=== PATIENT | female | born 1950 | race Caucasian/White ===

== ENCOUNTER 2018-10-15 05:25 | Inpatient (IN) | payer OTHER ==
[~2018-10-15] VITALS: Ht 167.6 cm; Wt 121.7 kg
[~2018-10-15 05:25] MED LIST: AMITRIPTYLINE100 MG PO; ENOXAPARIN40 MG/0.1 SUBQ
[2018-10-15 13:03] VITALS: BP 147/69
[2018-10-15 18:15] VITALS: BP 152/88
[2018-10-15 19:29] LABS: BASOPHILS 0.2 % (0.0-2.0); HEMATOCRIT 40.5 % (37.0-47.0); HEMOGLOBIN 13.7 gm/dL (12.0-15.0); LYMPHOCYTES 2.9 % (24.0-44.0); MCH 30.3 pg (26.0-34.0); MCHC 33.9 g/dL (28.0-37.0); MCV 89.1 fL (80.0-100.0); MONOCYTES 0.9 % (1.0-8.0); PLATELET COUNT 312 thou/uL (150-400); RBC 4.54 mil/uL (4.20-5.00); RDW 12.9 % (10.5-14.5); WBC 13.6 thou/uL (4.0-11.0)
[2018-10-15 19:43] LABS: TROPONIN-I <0.06 ng/mL (<0.06)
[2018-10-15 20:01] LABS: ALBUMIN 3.7 g/dL (3.4-5.0); CALCIUM 9.3 mg/dL (8.5-10.1); CREATININE 0.9 mg/dL (0.6-1.0); MAGNESIUM 2.1 mg/dL (1.8-2.4); POTASSIUM 4.8 mmol/L (3.5-5.1); TOTAL BILIRUBIN 0.3 mg/dL (<0.1-1.0); TOTAL PROTEIN 7.1 g/dL (6.4-8.2)
--- NOTE | 2018-10-15 20:02 | NUR ---
PT ARRIVED AT APPROX 1815 FROM PACU WITH BELONGINGS AND FAMILY. PT AOX4, VSS, HR 110-112. TELEMETRY PUT ON, ADMIT STRIP PRINTED AND CHARTED. ADMISSSION ASSESSMENT COMPLETED. WILL ACKNOWLEDGE AND IMPLEMENT ORDERS. WILL CONTINUE TO MONITOR AND FOLLOW POC.
[2018-10-15 20:35] VITALS: BP 142/78
[2018-10-15 23:49] VITALS: BP 141/79
--- NOTE | 2018-10-16 03:36 | NUR ---
ADMIT, 10/15/18. POST OP D1, FOOT LEFT SURGERY. ALERT AND ORIENTED. VITALS STABLE. C/O NAUSEA AND VOMITING. ZOFRAN, FAMOTIDINE, TUMS, AND COMPAZINE GIVEN. N/V RESOLVED DENIES PAIN. LEFT LEG STILL NUMB FROM THE SURGERY. ABLE TO MOVE TOES. DR. TRAMMELL WILL BE VISITNG PT TOMORROW AFTERNOON. NO WEIGHT BEARING ON THE LEFT LEG. PIVOTS FINE WITH TRANSFERS. WILL CONTINUE TO MONITOR.
[2018-10-16 04:24] VITALS: BP 144/69
[2018-10-16 07:53] VITALS: BP 120/52
[2018-10-16 10:10] VITALS: BP 120/52
[2018-10-16 10:50] LABS: HEMOGLOBIN 13.6 gm/dL (12.0-15.0); MCH 30.7 pg (26.0-34.0); MCV 90.2 fL (80.0-100.0); RBC 4.43 mil/uL (4.20-5.00); RDW 13.2 % (10.5-14.5); WBC 14.7 thou/uL (4.0-11.0)
[2018-10-16 11:00] LABS: CREATININE 1.1 mg/dL (0.6-1.0); MAGNESIUM 2.1 mg/dL (1.8-2.4)
[2018-10-16 11:04] LABS: POTASSIUM 3.3 mmol/L (3.5-5.1)
[2018-10-16 14:10] VITALS: BP 125/71
--- NOTE | 2018-10-16 14:12 | NUR ---
MET WITH PATIENT WHO RESIDES AT HOME WITH SPOUSE IN [facility]. SHE HAD RECENT FOOT SX AND NWB ON LEFT FOOT. SHE ADMITS WITH TACHYCARDIA. AT HOME SHE HAS FALLEN USING HER KNEE SCOOTER. SHE REPORTS SHE IS IN NEED OF REHAB THERAPY PRIOR TO HOME. DISCUSSED [facility] BUT PATIENT REPORTS 5N EVALED AND BOTH SHE AND STRONGLY WANT REHAB HERE IN HOSPITAL WERE CARDIOLOGY ABLE TO FOLLOW. UPDATED 5N LIASON. PATIENT NOT INTERESTED IN POST ACUTE CARE LIST.
--- NOTE | 2018-10-16 15:54 | 2DMMODE ---
[facility] [address] [place] [address] 2 D/M-MODE ECHOCARDIOGRAM Name: ARYANLUNA Room #: 203-P [facility] IN ..#: [id number] Admission: 10/15/18 Attend Phys: Pardeep Haney, Discharge: Date of : 52 Date of Service: 10/16/18 1554 Report #: [id number] THIS REPORT FOR: //name// APPROVED REPORT Study performed: 10/16/2018 14:47:16 EXAM: Comprehensive 2D, Doppler, and color-flow Echocardiogram Patient Location: Bedside Room #: [facility] Status: routine BSA: 2.26 HR: 100 bpm BP: 120/52 mmHg Other Information Study Quality: Fair Technically limited study due to limited mobility and morbid obesity. Indications Tachycardia. Echo Enhancing Agent Indication: Endocardial border delineation Agent(s) / Amount(s) Used: Optison 5 cc 2D Dimensions RVDd: 33.61 mm IVSd: 10.26 (7-11mm) LVOT Diam: 21.51 (18-24mm) LVDd: 39.52 mm PWd: 10.01 (7-11mm) Ascending Ao: 32.36 (22-36mm) LVDs: 26.42 (25-40mm) Aortic Root: 31.84 mm Volumes Left Atrial Volume (Systole) Single Plane 4CH: 28.05 mL Single Plane 2CH: 34.92 mL LA ESV Index: 15.00 mL/m2 Aortic Valve AoV Peak Richard.: 1.75 m/s AO Peak Gr.: 12.26 mmHg LVOT Max P.89 mmHg LVOT Max V: 1.11 m/s DARYA Vmax: 2.29 cm2 [facility] [place] [place] [address] 2 D/M-MODE ECHOCARDIOGRAM Name: LUNA BAEZA Dread Room #: 203-P [facility] IN [facility].#: [id number] Admission: 10/15/18 Attend Phys: Pardeep Haney, Discharge: Date of : 52 Date of Service: 10/16/18 1554 Report #: [id number] Mitral Valve E/A Ratio: 0.7 MV Decel. Time: 243.61 ms MV E Max Richard.: 0.85 m/s MV A Richard.: 1.16 m/s MV PHT: 70.65 ms IVRT: 62.28 ms Pulmonary Valve PV Peak Richard.: 0.92 m/s PV Peak Gr.: 3.41 mmHg Tricuspid Valve TR Peak Richard.: 2.27 m/s RAP Estimate: 5.00 mmHg TR Peak Gr.: 20.63 mmHg PA Pressure: 26.00 mmHg Left Ventricle The left ventricle is normal size. There is normal LV segmental wall motion. There is normal left ventricular wall thickness. Left ventricular systolic function is normal. LVEF is 60-65%. Mild diastolic dysfunction is present (impaired relaxation pattern). Right Ventricle Right ventricle is not well visualized but appears grossly normal in size and function. The right ventricular systolic function is normal. Atria The left atrium size is normal. The right atrium size is normal. Aortic Valve Aortic valve is grossly normal in structure. No aortic regurgitation is present. There is no aortic valvular stenosis. Mitral Valve The mitral valve is normal in structure. There is no mitral valve regurgitation noted. No evidence of mitral valve stenosis. Tricuspid Valve Tricuspid valve is not well visualized. Trace tricuspid regurgitation. Estimated PAP is 25mmHg. [facility] [address] [place] [address] 2 D/M-MODE ECHOCARDIOGRAM Name: LUNA BAEZA Room #: 203-P [facility] IN ..#: [id number] Admission: 10/15/18 Attend Phys: Pardeep Haney, Discharge: Date of : 52 Date of Service: 10/16/18 1554 Report #: [id number] Pulmonic Valve The pulmonary valve is normal in structure. Trace pulmonic regurgitation. Great Vessels The aortic root is normal in size. The ascending aorta is normal in size. IVC is normal in size and collapses >50% with inspiration. Pericardium There is no pericardial effusion. <Conclusion> Left ventricular systolic function is normal. There is normal LV segmental wall motion. LVEF is 60-65%. Mild diastolic dysfunction Aortic valve is grossly normal in structure. No aortic regurgitation or stenosis The mitral valve is normal in structure. No mitral valve regurgitation. Trace tricuspid regurgitation. Estimated pulmlonary artery pressure of 25mmHg. There is no pericardial effusion. <ELECTRONICALLY SIGNED> By: Azar Solorzano MD, [facility] 10/16/18 1554 1554 1554 Azar Solorzano MD, FACC /INF
[2018-10-16 15:59] VITALS: BP 124/62
[2018-10-16] MEDS ORDERED: ATENOLOL 50MG T50 M1 PO (16:52)
[2018-10-16 17:12] LABS: GLYCOHEMOGLOBIN (HGB A1C) 5.5 % (4.8-5.6)
[2018-10-16 19:11] VITALS: BP 100/60
--- NOTE | 2018-10-16 19:12 | NUR ---
ASSUMED CARE OF PT AT SHIFT CHANGE. ASSESSMENTS CHARTED. MEDS GIVEN PER NOV. PT AOX4, VSS, PT TACHY THROUGHOUT SHIFT, CARDIOLOGY CONSULTED AND SAW PT. C/O PAIN ONCE DURING SHIFT, MANAGED WITH PO PAIN MEDS. PT C/O ITCHING EARLY THIS AM, BENDADRYL ORDERED. PT DENIED C/O SINCE AND DID NOT FEEL NEED TO TAKE BENADRYL.DR. TRAMMELL SAW PT TODAY, STATED SHE WILL BE BACK ON MONDAY OR MONDAY TO CHANGE WRAPPING ON LEFT FOOT FROM PROCEDURE. O2 SATS REMAIN WNL ON ROOM AIR. NO S/SX OF CARDIAC OR RESP DISTRESS NOTED. PT UP WITH PHYSICAL THERAPY TODAY, TOLERATED WELL, ABLE TO SHIFT SELF IN BED WELL. URINE OUTPUT ADEQUATE. NO BM THIS SHIFT. WILL CONTINUE TO MONITOR AND FOLLOW POC.
--- NOTE | 2018-10-17 01:32 | NUR ---
1900, PT AO X4. DENIES CHEST PAIN AND N/V. PT POST L. FOOT SURGERY. REPORTED PAINOF 5 IN THE L. FOOT. ALLEVIATED BY TRAMADOL. CURRENTLY ON ATENOLOL, HR MAINTAINED LESS THAN 100 MOST OF THE NIGHT. PLANS TO FIND A REHAB, AT [facility], OR SOMEWHERE [place]. WILL CONTINUE TO MONITOR.
[2018-10-17 04:48] VITALS: BP 120/61
[2018-10-17 08:00] VITALS: BP 133/67; BP 166/83
--- NOTE | 2018-10-17 08:13 | EKG ---
[address] [address] ELECTROCARDIOGRAM REPORT Name: LUNA BAEZA Room #: 203-P ADM IN .R.#: [id number] Admission: 10/15/18 Attend Phys: Pardeep Haney MD Discharge: Date of : 52 Report #: [id number] THIS REPORT FOR: //name// [facility] Test Date: 2018-10-16 Test Time: 11:04:46 Pat Name: LUNA BAEZA Department: Room: 203 Gender: F Stamp Mounter: Marc HAYWOOD : 1950 Requested By: Radha Rebolledo Order Number: [id number] MD: Azar Solorzano Measurements Intervals [place] Rate: 106 P: 28 FL: 187 QRS: 2 QRSD: 94 T: 55 QT: 326 QTc: 433 Interpretive Statements Sinus tachycardia Otherwise no significant abnormality No previous ECG available for comparison Electronically Signed On 10-17-2018 8:13:36 RN OBGYN by Azar Solorzano [email or web address] <ELECTRONICALLY SIGNED> By: Azar Solorzano MD, [facility] 10/17/18 0813 1104 1104 Azar Solorzano MD, FACC /EPI
--- NOTE | 2018-10-17 08:34 | EKG ---
[address] [address] ELECTROCARDIOGRAM REPORT Name: LUNA BAEZA Room #: 203- ADM IN M.R.#: [id number] Admission: 10/15/18 Attend Phys: Pardeep Haney MD Discharge: Date of : 52 Report #: [id number] THIS REPORT FOR: //name// [facility] Test Date: 2018-10-17 Test Time: 06:47:47 Pat Name: LUNA BAEZA Department: Room: 203 Gender: F Facialist: [place] : 1950 Requested By: Azar Solorzano Order Number: [id number] MD: Azar Solorzano Measurements Intervals [place] Rate: 79 P: 21 PA: 208 QRS: 13 QRSD: 94 T: 33 QT: 358 QTc: 411 Interpretive Statements Sinus rhythm Normal tracing No previous ECG available for comparison Electronically Signed On 10-17-2018 8:34:39 STRETCHER LEVELER OPERATOR by Azar Solorzano [email or web address] <ELECTRONICALLY SIGNED> By: Azar Solorzano MD, [facility] 10/17/18 [phone] Azar Solorzano MD, FACC /EPI
[2018-10-17 11:35] VITALS: BP 116/58
--- NOTE | 2018-10-17 11:51 | NUR ---
FAXED REFERRAL TO [facility] SPOKE WITH BARBARA SHE RECEIVED REFERRALAND WILL REVIEW. [facility] WITH ADM. LIAJONE THAT REFERRAL SEND ANTICIPATE DC TOMORROW 10/18. DCP TO FOLLOW.
--- NOTE | 2018-10-17 11:55 | NUR ---
patient not a cadidate for 5N. Discussed option of [facility] to eval patient for post acute care. Patient agreeable but reports if not accepting she is interested home with HH. Her HH agency is [facility]. if she is to nm home with HH.
--- NOTE | 2018-10-17 15:02 | NUR ---
[facility] IS [facility]EPTING OF PATIENT. [facility] HAS NO BEDS AVAIL. [facility] KAREN KUNZ MET WITH PATIENT AND REVIEWED REHAB. PATIENT IS AGREEABLE TO [facility]. SP WITH DR TRAMMELL AND REVIEWED 5N NOT ABLE TO ACCEPT. DISCUSSED INQUIRED INTO [facility] AND OTHER REHAB FACILITIES. DR TRAMMELL AGREEABLE TO PLAN OF [facility]. SHE PLANS TO SEE PATIENT THIS EVENING FOR DSG CHANGE. PLAN TRANSPORT AT 6PM THIS EVENING.
[2018-10-17] MEDS ORDERED: TYLENOL325 MG PO (15:37)
--- NOTE | 2018-10-17 16:09 | NUR ---
PATIENT ACCEPTED TO [facility]. TRANSPORTATION AT 1900 VIA WC VAN FROM [facility]. PATIENT IN AGREEMENT WITH PLAN. FAXED ORDERS, CHART COPIED NO FURTHER NEEDS
[2018-10-17 16:20] VITALS: BP 106/52
== END 2018-10-17 19:26 | DRG 492 ==
LOC: OR 05:25 → TBA 05:38 → OR 10:07 → 2N 18:37 → OR 18:38 → 2N 10-17 19:26
PROVIDERS: Nurse Practitioner; ADMIT Internal Medicine
DX: M19.072 Primary osteoarthritis, left ankle and foot (principal); E43 Unspecified severe protein-calorie malnutrition; Z68.41 Body mass index [BMI] 40.0-44.9, adult; M21.42 Flat foot [pes planus] (acquired), left foot; M24.572 Contracture, left ankle; R00.0 Tachycardia, unspecified; I48.0 Paroxysmal atrial fibrillation; I10 Essential (primary) hypertension; E66.9 Obesity, unspecified; Z90.49 Acquired absence of other specified parts of digestive tract; Z86.718 Personal history of other venous thrombosis and embolism; Z79.899 Other long term (current) drug therapy; Z88.5 Allergy status to narcotic agent
CPT/HCPCS: 10081; 10797; 50010; 50101; 50386; 50951; 53341; 55430; 56524; 56526; 56527; 57091; 57180; 62110; 62900; 64039; 64043; 70005

== ENCOUNTER 2018-11-28 13:52 | Emergency (ER) | payer OTHER ==
[~2018-11-28] VITALS: Ht 167.6 cm; Wt 122.0 kg
[~2018-11-28 13:52] MED LIST changes: -ASPIR-TRIN325 MG PO; -XARELTO1 EACH PO
[2018-11-28] MEDS ORDERED: ASPIR-TRIN325 MG PO (14:24)
[2018-11-28 15:16] VITALS: BP 146/68
[2018-11-28] MEDS ORDERED: XARELTO1 EACH PO (15:43)
== END 2018-11-28 15:46 | disposition home or self-care (01) ==
LOC: ER 13:52
DX: I82.402 Acute embolism and thrombosis of unspecified deep veins of left lower extremity (principal); Z88.5 Allergy status to narcotic agent; Z90.49 Acquired absence of other specified parts of digestive tract

== ENCOUNTER → 2018-11-28 | Outpatient (CLI) | payer OTHER ==
[~2018-11-28] MED LIST changes: +ASPIR-TRIN325 MG PO; +ATENOLOL 50MG T50 M1 PO; +TYLENOL325 MG PO; +XARELTO1 EACH PO
== END ==
LOC: ULTRA 12:23
DX: I82.432 Acute embolism and thrombosis of left popliteal vein (principal)

== ENCOUNTER 2019-04-17 05:27 | Inpatient (IN) | payer OTHER ==
[2019-04-17] VITALS (11 sets, daily range): BP systolic 110–165; BP diastolic 77–97
[~2019-04-17] VITALS: Ht 167.6 cm; Wt 122.6 kg
[~2019-04-17 05:27] MED LIST changes: +ASPIR-TRIN325 MG PO; +PROTONIX40 M1 PO; +XARELTO1 EACH PO; +XARELTO20 MG PO
[2019-04-17 11:36] LABS: ABSOLUTE NEUTROPHILS 5.7 thou/uL (1.4-8.2); BASOPHILS 0.6 % (0.0-2.0); HEMATOCRIT 43.3 % (37.0-47.0); HEMOGLOBIN 14.3 gm/dL (12.0-15.0); LYMPHOCYTES 19.5 % (24.0-44.0); MCH 29.5 pg (26.0-34.0); MCHC 33.2 g/dL (28.0-37.0); MCV 88.9 fL (80.0-100.0); MONOCYTES 5.1 % (1.0-8.0); PLATELET COUNT 326 thou/uL (150-400); POLYS 73.8 % (36.0-66.0); RBC 4.87 mil/uL (4.20-5.00); RDW 13.3 % (10.5-14.5); WBC 7.7 thou/uL (4.0-11.0)
[2019-04-17 11:47] LABS: CALCIUM 9.8 mg/dL (8.5-10.1); POTASSIUM 4.2 mmol/L (3.5-5.1)
[2019-04-18 03:29] VITALS: BP 133/76
[2019-04-18 05:37] LABS: HEMATOCRIT 36.6 % (37.0-47.0); HEMOGLOBIN 12.5 gm/dL (12.0-15.0); MCV 88.1 fL (80.0-100.0); RBC 4.16 mil/uL (4.20-5.00); RDW 13.1 % (10.5-14.5); WBC 11.2 thou/uL (4.0-11.0)
[2019-04-18 05:52] LABS: CREATININE 0.8 mg/dL (0.6-1.0); POTASSIUM 4.2 mmol/L (3.5-5.1)
--- NOTE | 2019-04-18 06:38 | NUR ---
PT ARRIVED FROM OR AT 1930. PT A/O X4 PT COMPLAINS OF NAUSEA WITH NO EMESIS. FINALLY GOT RELIEVE AFTER COMPAZINE AND REGALIN. PT STATES NO PAIN IN LOWER EXETREMITY. TOES HAVE CAPILLARY REFILL AND FEELING. PT CAN PIVOT AND SWIVEL TO USE BSC. HOURLY ROUNDING.
[2019-04-18 07:08] VITALS: BP 146/77
--- NOTE | 2019-04-18 09:53 | NUR ---
Nutrition: Pt admitted for L osteotomy/hardware removal. Seen due to BMI >40 (43.6 kg/m2). S/p day 1 from L foot/ankle revision surgery. Per EMR, will need to go to skilled rehab. Stable weight x 6 months, weighing 269# per 09/2018, 270# per CBW. On a regular diet, but only taking sips of liquids, eating crackers thus far due to nausea. Will be nonweight bearing on L foot for the next 9 weeks (just did this in September too). She declined all nutrition education for healthier eating at home, but did allow RD to explain importance of protein, especially w/ increased time sitting/laying. Pt does well with protein intake, from variety of sources. Place as low nutrition risk.
--- NOTE | 2019-04-18 10:21 | NUR ---
ASSESSMENT: CM REVIEWED CHART AND MET WITH PT AT THE BEDSIDE. PT WAS ADMITTED S/P ANKLE FUSION. PT REPORTS SHE LIVES IN A HOUSE WITH HER IN [place], [place]. PT REPORTS SHE AMBULATES NORMALLY USING A CANE AND ALSO HAS A WALKER AND WHEELCHAIR AT HOME. PT REPORTS HAVING A WALKIN SHOWER WITH A GRAB BAR. PT REPORTS SHE HAS BEEN TO [facility] IN THE PAST AND PHYSICIAN STATES SHE WILL NEED REHAB AND WANTS TO GO BACK THERE. CM SENT REFERRAL TO [facility] AND NOTIFIED LIASON WHO IS GOING TO REVIEW IT. PT IS TO HAVE A SPLINT PLACED TOMORROW. CM WILL CONTINUE TO FOLLOW TO ASSIST A NEEDED.
[2019-04-18 15:26] VITALS: BP 116/67
--- NOTE | 2019-04-18 16:57 | NUR ---
ASSUMED CARE OF PATIENT AT 0715, PATIENT ALERT AND ORIENTED X 4. PATIENT UP WITH ASSIST, BUT NON-WEIGHT BEARING ON LEFT FOOT. PATIENT DENIES PAIN THIS SHIFT. PATIENT HAS RIGHT WRIST IV IN PLACE, REMAINS PATENT. NO C/O NAUSEA THIS SHIFT. PATIENT STATES SHE NOT DIABETIC, NO ACCUCHECKS DONE. MED-SURG TELE, SINUS TACHY. WILL CONTINUE TO MONITOR.
[2019-04-18 19:25] VITALS: BP 109/55
[2019-04-19 04:23] VITALS: BP 114/47
--- NOTE | 2019-04-19 05:16 | NUR ---
RESUME CARE FOR PT THIS EVENING. VSS AND SURGICAL DRESSING C/D/I. CAPILLARY REFILL SEEN IN TOES, AND PT STATES SHE HAS SOME FEELING IN TOES ALSO. PT HR BELOW 100 SINCE SURGERY. PT ASKED FOR SOME PAIN MEDICATION BUT REFUSED THE ULTRAM. CALLED [facility] AND GOT TYLENOL FOR A PAIN LEVEL OF 3 STATED PER PT. PT HAS ABILITY TO STAND AND PIVOT TO BSC WITH ASSIST. PT STATES NO N/V DURING SHIFT. HOURLY ROUNDING.
[2019-04-19 07:51] VITALS: BP 120/63
--- NOTE | 2019-04-19 13:43 | NUR ---
ON-GOING ASSESSMENT: PT WILL DISCHARGE TO [facility] THIS EVENING AFTER PHYSICIAN CHANGES DRESSING. PT SIGNED CHOICE OF VENDOR FORM. CM NOTIFIED LIASON AT [facility] AND FAXED DISCHARGE ORDERS. TRANSPORATION HAS BEEN ARRANGED FOR 0. BEDSIDE RN AND PT NOTIFIED. CM NOTIFIED BEDSIDE RN THE NUMBER FOR REPORT. CHART COPY WAS ORDERED. PT REPORTS NO FURTHER NEEDS FROM CM AT THIS TIME.
--- NOTE | 2019-04-19 15:19 | NUR ---
ASSESSMENT CHARTED. PT ALERT AND ORIENTED. VSS. DENIED HAVING PAIN. UP IN THE CJAIR THIS SHIFT. EVALUATED BY PHYSICAL AND OCCUPATIONAL THERAPY. PLAN IS TO BE DISCHARGE TO REHAB TODAY. LEFT LEG SURGICAL DRESSING TO BE CHANGED BY [facility]. CMS INTACT ON THE LEFT LEG. NO CONCERNS AT THIS TIME. WILL CONTINUE TO MONITOR.
[2019-04-19 15:32] VITALS: BP 104/54
== END 2019-04-19 19:00 | DRG 494 ==
LOC: TBA 05:27 → 3W 05:27 → PRE 07:55 → 3W 18:59
PROVIDERS: Podiatrist Foot & Ankle Surgery; ADMIT Hospitalist
PROC: 0L8P0ZZ Division of Left Lower Leg Tendon, Open Approach (ICD-10-PCS; principal; 2019-04-17)
PROC: 0SPG04Z Removal of Internal Fixation Device from Left Ankle Joint, Open Approach (ICD-10-PCS; principal; 2019-04-17)
DX: T84.098A Other mechanical complication of other internal joint prosthesis, initial encounter (principal); R00.0 Tachycardia, unspecified; M19.90 Unspecified osteoarthritis, unspecified site; I10 Essential (primary) hypertension; Y83.8 Other surgical procedures as the cause of abnormal reaction of the patient, or of later complication, without mention of misadventure at the time of the procedure; M24.573 Contracture, unspecified ankle; Z88.6 Allergy status to analgesic agent; Z86.718 Personal history of other venous thrombosis and embolism; Z90.49 Acquired absence of other specified parts of digestive tract; Y92.89 Other specified places as the place of occurrence of the external cause
CPT/HCPCS: 10779; 10879; 50010; 50101; 50386; 51536; 52124; 55430; 56524; 56525; 56527; 57091; 62110; 62900; 64042; 70005